=== PATIENT | male | born 1985 | race Caucasian/White ===

== ENCOUNTER 2019-06-06 23:42 | Emergency (ER) | payer SELFPAY ==
[~2019-06-06] VITALS: Ht 175.3 cm; Wt 124.7 kg
--- NOTE | 2019-06-07 | NUR ---
Patient to ER bed Hallway to gown for evaluation. Side rails up.
[2019-06-07 00:09] VITALS: BP_SYST 141
--- NOTE | 2019-06-07 00:10 | NUR ---
Dr. Waite bedside for Pt eval
--- NOTE | 2019-06-07 00:15 | NUR ---
Pt BIB [facility] to ED while in custody for medical clearance. He denies any CLAY,- SOB,- CP,- Abd pain,- Back pain. Pt sates he hit his right hand on a window and sustained a puncture wound to the right hand at the hypothenar area. Ther was no evidence of glass in the hand on inspection and the wound in not bleeding. No other complaints and or injuries noted. VSS no s/s of acute distress. Resting on gurney rails up
[2019-06-07 00:40] VITALS: BP_SYST 141
--- NOTE | 2019-06-07 00:40 | NUR ---
Patient given written and verbal discharge instructions and verbalizes understanding. ER MD discussed with patient the results and treatment provided. Patient in stable condition. ID arm band removed. Patient educated on pain management and to follow up with PMD. Pain Scale 0/10 Opportunity for questions provided and answered.
[2019-06-07] MEDS ORDERED: BACITRACIN 1 GM OINT TP ONE (00:41)
== END 2019-06-07 00:40 ==
LOC: SED 23:42
DX: S61.431A Puncture wound without foreign body of right hand, initial encounter (principal); Z02.89 Encounter for other administrative examinations; W25.XXXA Contact with sharp glass, initial encounter; Y93.89 Activity, other specified; Y92.89 Other specified places as the place of occurrence of the external cause; Y99.8 Other external cause status
CPT/HCPCS: 99283